=== PATIENT | female | born 1965 | race Caucasian/White ===

== ENCOUNTER 2018-12-14 00:10 | Emergency (ER) | payer OTHER ==
[2018-12-14 00:11] VITALS: BMI 23.6
[2018-12-14 00:49] VITALS: PULSE 58
[2018-12-14] MEDS ORDERED: Sodium Chloride 0.9% 1,000 ML IV STA (01:23)
--- NOTE | 2018-12-14 01:40 | ED PDOC ---
Arrival/HPI - General Historian: Patient, Personal Care Assistant - History of Present Illness Narrative History of Present Illness (Text): 12/14/18 01:28 53 y/o female with no significant PMH presents to the ED with colicky right flank pain for the past 24 hours. Patient states that her pain woke her up from sleep, intermittent, worsens with inspiration but no alleviating factors. Patient denied fever, chills, N/V/D, dysurea, urinary urgency/frequency/malodor. Pain is not related to meals, denies h/o kidney stones, gall bladder stones, or similar symptoms in the past. Patient denied CP, SOB, palpitation, headache , dizziness, muscle weakness, foacl neurological symptoms. Time/Duration: 24 hours Symptom Onset: Gradual Symptom Course: Intermittent, [place] Quality: Aching Severity Level: 7 Activities at Onset: Rest Context: Home <Saran Bustillo - Last Filed: 12/14/18 05:20> <Geovany Quesada - Last Filed: 12/14/18 19:55> - General Chief Complaint: Back Pain Time Seen by Provider: 12/14/18 00:22 Past Medical History - Provider Review Nursing Documentation Reviewed: Yes - Infectious Disease Hx of Infectious Diseases: None - Tetanus Immunization Tetanus Immunization: Unknown - Cardiac Hx Cardiac Disorders: No - Pulmonary Hx Respiratory Disorders: No - Neurological Hx Neurological Disorder: No - HEENT Hx HEENT Disorder: No - Renal Other/Comment: UTI x 2. - Endocrine/Metabolic Hx Endocrine Disorders: No - Hematological/Oncological Hx Anemia: Yes (2006) - Integumentary Other/Comment: Varicose Veins - Musculoskeletal/Rheumatological Hx Musculoskeletal Disorders: No - Gastrointestinal Hx Gastrointestinal Disorders: No - Genitourinary/Gynecological Hx Genitourinary Disorders: No - Psychiatric Hx Depression: Yes Hx Substance Use: No - Surgical History Hx Hysterectomy: Yes - Anesthesia Hx Anesthesia: Yes Hx Anesthesia Reactions: No Hx Malignant Hyperthermia: No <Saran Bustillo - Last Filed: 12/14/18 05:20> Family/Social History - Physician Review Nursing Documentation Reviewed: Yes Family/Social History: Unknown Family HX Smoking Status: Never Smoked Hx Alcohol Use: No Hx Substance Use: No <Saran Bustillo - Last Filed: 12/14/18 05:20> Allergies/Home Meds <Saran Bustillo - Last Filed: 12/14/18 05:20> <DipakGeovany iniguez - Last Filed: 12/14/18 19:55> Allergies/Adverse Reactions: Allergies No Known Allergies Allergy (Verified 12/14/18 00:46) Review of Systems - Physician Review All systems were reviewed & negative as marked: Yes - Review of Systems Constitutional: absent: Fatigue, Weight Change, Fevers Eyes: absent: Vision Changes ENT: absent: Tinnitus, Sore Throat, Epistaxis Respiratory: absent: SOB, Cough, Sputum Cardiovascular: absent: Chest Pain, Palpitations, Edema Gastrointestinal: absent: Abdominal Pain, Constipation, Diarrhea, Nausea, Vomiting, Hematochezia Genitourinary Female: absent: Dysuria, Frequency, Hematuria, Vaginal Discharge Musculoskeletal: Back Pain Skin: absent: Rash Neurological: absent: Headache, Dizziness Endocrine: absent: Diaphoresis, Polyuria Hemo/Lymphatic: absent: Adenopathy <Saran Bustillo - Last Filed: 12/14/18 05:20> Physical Exam Vital Signs Reviewed: Yes Vital Signs Temp Pulse Resp BP Pulse Ox 12/14/18 00:44 98.2 F 58 L 18 115/75 96 Temperature: Afebrile Blood Pressure: Normal Pulse: Regular Respiratory Rate: Normal Appearance: Positive for: Well-Appearing, Non-Toxic, Comfortable Pain Distress: None Mental Status: Positive for: Alert and Oriented X 3 - Systems Exam Head: Present: Atraumatic, Normocephalic Pupils: Present: PERRL Extroacular Muscles: Present: EOMI Conjunctiva: Present: Normal Mouth: Present: Moist Mucous Membranes Pharnyx: No: ERYTHEMA, EXUDATE Neck: Present: Normal Range of Motion Respiratory/Chest: Present: Clear to Auscultation, Good Air Exchange. No: Respiratory Distress, Accessory Muscle Use Abdomen: Present: Normal Bowel Sounds. No: Tenderness, Distention Back: Present: CVA Tenderness (right side). No: Midline Tenderness, Pain with Leg Raise Upper Extremity: Present: Normal Inspection. No: Cyanosis, Edema Lower Extremity: Present: Normal Inspection. No: Edema Neurological: Present: GCS=15, CN II-XII Intact Skin: Present: Warm, Dry, Normal Color. No: Rashes Psychiatric: Present: Alert, Oriented x 3, Normal Insight <Saran Bustillo - Last Filed: 12/14/18 05:20> Vital Signs Temp Pulse Resp BP Pulse Ox 12/14/18 00:44 98.2 F 58 L 18 115/75 96 <Geovany Quesada - Last Filed: 12/14/18 19:55> Medical Decision Making - Lab Interpretations Interpretation: All labs normal - RAD Interpretation Radiology Orders: 12/14/18 01:26 ABDOMEN & PELVIS [ABD & PELVIS W/O PO OR IV CONT] [CT] Stat - EKG Interpretation Interpreted by ED Physician: Yes (Sinus bradycardia @[address]-T wave abnormalities) Type: 12 lead EKG - Medication Orders Current Medication Orders: Sodium Chloride (Sodium Chloride 0.9%) 1,000 mls @ 999 mls/hr IV .Q1H1M STA Stop: 12/14/18 02:23 Ketorolac Tromethamine (Toradol) 30 mg IVP STAT STA Stop: 12/14/18 01:24 <Saran Bustillo - Last Filed: 12/14/18 05:20> ED Course and Treatment: Impression: Pt seen and evaluated with vice president medical affairs. Aware and agree with HPI, clinical findings, plan, and management. Pt presented for right flank pain. Plan: -- CT Abdomen and Pelvis -- Labs -- Urinalysis, urine cultures -- IV fluids -- Toradol -- Reassess and disposition - Lab Interpretations Lab Results: Total Bilirubin 1.2 mg/dL (0.2-1.3) 12/14/18 01:34 AST 26 U/L (14-36) 12/14/18 01:34 ALT 12 U/L (7-56) 12/14/18 01:34 Alkaline Phosphatase 55 U/L (38-126) 12/14/18 01:34 Total Protein 8.0 g/dL (5.8-8.3) 12/14/18 01:34 Albumin 4.4 g/dL (3.0-4.8) 12/14/18 01:34 Globulin 3.5 gm/dL 12/14/18 01:34 Albumin/Globulin Ratio 1.2 (1.1-1.8) 12/14/18 01:34 Urine Color Yellow (YELLOW) 12/14/18 01:36 Urine Appearance Clear (CLEAR) 12/14/18 01:36 Urine pH 6.5 (4.7-8.0) 12/14/18 01:36 Ur Specific [place] <= 1.005 (1.005-1.035) 12/14/18 01:36 Urine Protein Negative mg/dL (<30 mg/dL) 12/14/18 01:36 Urine Glucose (UA) Negative mg/dL (NEGATIVE) 12/14/18 01:36 Urine Ketones Negative mg/dL (NEGATIVE) 12/14/18 01:36 Urine Blood Negative (NEGATIVE) 12/14/18 01:36 Urine Nitrate Negative (NEGATIVE) 12/14/18 01:36 Urine Bilirubin Negative (NEGATIVE) 12/14/18 01:36 Urine Urobilinogen 0.2 E.U./dL (<1 E.U./dL) 12/14/18 01:36 Ur Leukocyte Esterase Trace [place]/uL (NEGATIVE) H 12/14/18 01:36 Urine RBC 0 - 2 /hpf (0-2) 12/14/18 01:36 Urine WBC 1 - 3 /hpf (0-6) 12/14/18 01:36 Ur Epithelial Cells 0 - 2 /hpf (0-5) 12/14/18 01:36 Urine Bacteria Rare /hpf (NONE) 12/14/18 01:36 - RAD Interpretation Radiology Orders: 12/14/18 01:26 ABDOMEN & PELVIS [ABD & PELVIS W/O PO OR IV CONT] [CT] Stat - Medication Orders Current Medication Orders: Discontinued Medications Sodium Chloride (Sodium Chloride 0.9%) 1,000 mls @ 999 mls/hr IV .Q1H1M STA Stop: 12/14/18 02:23 Last Admin: 12/14/18 01:37 Dose: 999 mls/hr eMAR Start Stop Document 12/14/18 01:37 GMD (Rec: 12/14/18 01:37 GMD [id number]) Intravenous Solution Start Date 12/14/18 Start Time 01:37 End Date 12/14/18 End time 02:37 Total Infusion Time 60 Ketorolac Tromethamine (Toradol) 30 mg IVP STAT STA Stop: 12/14/18 01:24 Last Admin: 12/14/18 01:37 Dose: 30 mg MAR Pain Assessment Document 12/14/18 01:37 GMD (Rec: 12/14/18 01:37 GMD [id number]) Pain Reassessment Is this a pain reassessment? No IVP Administration Document 12/14/18 01:37 GMD (Rec: 12/14/18 01:37 D [id number]) Charges for Administration # of IVP Administrations 1 <Geovany Quesada - Last Filed: 12/14/18 19:55> - PA / TESTING DIRECTOR / Resident Statement ENRIQUE has reviewed & agrees with the documentation as recorded. / has examined the patient and agrees with the treatment plan. <Geovany Quesada - Last Filed: 12/14/18 19:55> Disposition/Present on Arrival - Present on Arrival Any Indicators Present on Arrival: No History of DVT/PE: No History of Uncontrolled Diabetes: No Urinary Catheter: No History of Decub. Ulcer: No History Surgical Site Infection Following: None - Disposition Have Diagnosis and Disposition been Completed?: Yes Patient Plan: Discharge <Saran Bustillo - Last Filed: 12/14/18 05:20> - Present on Arrival Any Indicators Present on Arrival: No - Disposition Have Diagnosis and Disposition been Completed?: Yes Disposition Time: 05:20 Patient Plan: Discharge <Geovany Quesada - Last Filed: 12/14/18 19:55> - Disposition Diagnosis: Pneumonia of lower lobe of lung Disposition: HOME/ ROUTINE Condition: STABLE Discharge Instructions (ExitCare): Pneumonia, Adult (DC) Additional Instructions: follow up with your PMD in 2 days Prescriptions: Amoxicillin/Clavulanate [Augmentin 875 MG-125 MG] 1 tab PO BID 7 Days #14 tab Azithromycin [Zithromax] 250 mg PO DAILY 7 Days #7 tab Referrals: Nasrin Cannon DO [Primary Care Provider] - Follow up with primary Forms: [facility] (Danish), WORK NOTE
[2018-12-14 01:56] LABS: BASO # 0.01 K/mm3 (0.0-2.0); BASO % 0.1 % (0.0-3.0); EOS # 0.1 (0.0-0.7); HEMOGLOBIN 12.7 g/dL (12.0-16.0); LYMPH # 2.3 (1.2-3.4); LYMPH % 29.5 % (22.0-35.0); MEAN CELL VOLUME 90.5 fl (80.0-105.0); MEAN CORPUSCULAR HEMOGLOBIN 30.3 pg (25.0-35.0); MEAN CORPUSCULAR HGB CONC 33.5 g/dl (31.0-37.0); MEAN PLATELET VOLUME 8.9 fl (7.0-11.0); MONO # 0.6 (0.1-0.6); MONO % 7.6 % (1.0-6.0); RBC 4.19 10^6/uL (3.5-6.1); RED CELL DISTRIBUTION WIDTH 12.7 % (11.5-14.5); WHITE BLOOD COUNT 7.8 10^3/uL (4.5-11.0)
[2018-12-14 01:57] LABS: PH,URINE 6.5 (4.7-8.0); URINE BILIRUBIN NEGATIVE (NEGATIVE); URINE BLOOD NEGATIVE (NEGATIVE); URINE GLUCOSE (UA) NEGATIVE (NEGATIVE); URINE LEUKOCYTE ESTERASE TRACE Leu/uL (NEGATIVE); URINE PROTEIN NEGATIVE mg/dL (<30 mg/dL); URINE UROBILINOGEN 0.2 E.U./dL (<1 E.U./dL)
[2018-12-14 02:03] LABS: URINE APPEARANCE CLEAR (CLEAR); URINE COLOR YELLOW (YELLOW)
[2018-12-14 02:06] LABS: ALB/GLOB RATIO 1.2 (1.1-1.8); ALBUMIN 4.4 g/dL (3.0-4.8); ALT/SGPT 12 U/L (7-56); AST/SGOT 26 U/L (14-36); BLOOD UREA NITROGEN 10 mg/dL (7-21); CALCIUM 9.6 mg/dL (8.4-10.5); GFR NON-AFRICAN AMERICAN > 60
[2018-12-14 02:12] LABS: URINE BACTERIA RARE /hpf; URINE EPITHELIAL CELLS 0 - 2 /hpf (0-5); URINE RBC 0 - 2 /hpf (0-2)
--- NOTE | 2018-12-14 08:47 | CT ---
Date of service: 12/14/2018 PROCEDURE: CT Abdomen and Pelvis without intravenous contrast HISTORY: flank pain COMPARISON: None. TECHNIQUE: Without contrast.. Contrast dose: Radiation dose: Total exam DLP = 375.07 mGy-cm. This CT exam was performed using one or more of the following dose reduction techniques: Automated exposure control, adjustment of the mA and/or kV according to patient size, and/or use of iterative reconstruction technique. FINDINGS: LOWER THORAX: Unremarkable. LIVER: Unremarkable. No gross lesion or ductal dilatation. GALLBLADDER AND BILE DUCTS: Unremarkable. PANCREAS: Unremarkable. No gross lesion or ductal dilatation. SPLEEN: Unremarkable. ADRENALS: Unremarkable. No mass. KIDNEYS AND URETERS: Unremarkable. No hydronephrosis. No solid mass. VASCULATURE: Unremarkable. No aortic aneurysm. No aortic atherosclerotic calcification or mural plaque present. BOWEL: Unremarkable. No obstruction. No gross mural thickening. Moderate constipation APPENDIX: Unremarkable. Normal appendix. PERITONEUM: Unremarkable. No free fluid. No free air. LYMPH NODES: Unremarkable. No enlarged lymph nodes. BLADDER: Unremarkable. REPRODUCTIVE: Unremarkable. BONES: No acute fracture. OTHER FINDINGS: The report concurs with the preliminary [facility] report IMPRESSION: No acute intra-abdominal findings
[2018-12-14 10:16] VITALS: BP 122/68; RESP 17; TEMP 98.1; O2SAT 97
--- NOTE | 2018-12-14 13:59 | CARD ---
APPROVED REPORT Date of service: 12/14/2018 EKG Measurement Heart [id number] QT0T0 QTc0 <Conclusion> No QRS complexes found, no ECG analysis possible
--- NOTE | 2018-12-14 13:59 | CARD ---
APPROVED REPORT Date of service: 12/14/2018 EKG Measurement Heart [id number] <Conclusion> Sinus bradycardia with sinus arrhythmia Otherwise normal ECG
== END 2018-12-14 05:33 | disposition home or self-care (01) ==
LOC: ED 00:10
DX: J18.9 Pneumonia, unspecified organism (principal)
CPT/HCPCS: 74176; 80053; 81001; 83735; 84100; 85025; 87086; 93005; 96361; 96374; 99283; J1885; J7030

== ENCOUNTER 2018-12-15 00:56 | Observation (INO) | payer OTHER | END 2018-12-16 16:02 | disposition home or self-care (01) | LOC: ED 00:56 → ERH 04:01 → 3RSO 07:38 ==

== ENCOUNTER 2019-02-11 00:09 | Emergency (ER) | payer OTHER ==
[2019-02-11 00:18] VITALS: BMI 22.2
[2019-02-11 00:19] VITALS: RESP 16; TEMP 97.7; O2SAT 99
[2019-02-11] MEDS ORDERED: Naproxen 550 mg Tab PO STA (00:32)
--- NOTE | 2019-02-11 00:37 | ED PDOC ---
Arrival/HPI - General Chief Complaint: Upper Extremity Problem/Injury Time Seen by Provider: 02/11/19 00:28 Historian: Patient - History of Present Illness Narrative History of Present Illness (Text): 02/11/19 00:35 53 yo F c/o L shoulder pain radiating to the L arm, which started tonight. 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 Reports no numbness, weakness, CP, SOB, back pain, neck pain, trauma, injury or fall. PMD [place] Past Medical History - Provider Review Primary Care Provider: Nasrin Cannon V - Infectious Disease Hx of Infectious Diseases: None - Tetanus Immunization Tetanus Immunization: Unknown - Cardiac Hx Cardiac Disorders: No - Pulmonary Hx Pneumonia: Yes - Neurological Hx Neurological Disorder: No - HEENT Hx HEENT Disorder: No - Renal Other/Comment: UTI x 2. - Endocrine/Metabolic Hx Endocrine Disorders: No - Hematological/Oncological Hx Anemia: Yes (2006) - Integumentary Other/Comment: Varicose Veins - Musculoskeletal/Rheumatological Hx Musculoskeletal Disorders: No - Gastrointestinal Hx Gastrointestinal Disorders: No - Genitourinary/Gynecological Hx Genitourinary Disorders: No - Psychiatric Hx Depression: Yes Hx Substance Use: No - Surgical History Hx Hysterectomy: Yes - Anesthesia Hx Anesthesia: Yes Hx Anesthesia Reactions: No Hx Malignant Hyperthermia: No Family/Social History Family/Social History: No Known Family HX Smoking Status: Never Smoked Hx Alcohol Use: No (denies) Hx Substance Use: No Allergies/Home Meds Allergies/Adverse Reactions: Allergies No Known Allergies Allergy (Verified 12/14/18 00:46) Review of Systems - Review of Systems Constitutional: absent: Fatigue, Fevers Respiratory: absent: SOB, Cough Cardiovascular: absent: Chest Pain, Palpitations Musculoskeletal: Arthralgias. absent: Back Pain, Neck Pain Skin: absent: Rash, Skin Lesions Neurological: absent: Headache, Dizziness Physical Exam Vital Signs Temp Pulse Resp BP Pulse Ox 02/11/19 00:18 97.7 F 60 16 138/71 99 Temperature: Afebrile Blood Pressure: Normal Pulse: Regular Respiratory Rate: Normal Appearance: Positive for: Well-Appearing, Non-Toxic, Comfortable Pain Distress: Mild Mental Status: Positive for: Alert and Oriented X 3 - Systems Exam Head: Present: Atraumatic, Normocephalic Neck: Present: Normal Range of Motion. No: MIDLINE TENDERNESS Respiratory/Chest: Present: Clear to Auscultation, Good Air Exchange. No: Respiratory Distress, Accessory Muscle Use Cardiovascular: Present: Regular Rate and Rhythm, Normal S1, S2. No: Murmurs Back: Present: Normal Inspection. No: Midline Tenderness Upper Extremity: Present: Normal Inspection, Normal ROM, NORMAL PULSES, Tenderness (+tenderness to the medial L arm proximal to the L shoulder, patient able to abduct the L shoulder), Neurovascularly Intact, Norm 2-Pt Discrimination. No: Cyanosis, Edema, Swelling, Erythema, Temperature Abnormalties, Capillary Refill < 2s, Deformity Lower Extremity: Present: Normal Inspection. No: Edema Neurological: Present: GCS=15, CN II-XII Intact, Speech Normal, Normal Sensory Function Skin: Present: Warm, Dry, Normal Color. No: Rashes Psychiatric: Present: Alert, Oriented x 3, Normal Insight, Normal Concentration Medical Decision Making ED Course and Treatment: 02/11/19 00:33 Plan : - XR L shoulder - EKG - Naprosyn PO EKG : SB at 59 bpm, no acute ST changes. XR L shoulder : no fracture, no dislocation. XR results d/w the patient. Sling applied. Advised to rest, ice shoulder. Diagnosis of bursitis vs tendonitis d/w the patient. Advised to follow up with referral physician in 1-2 days without fail. Advised to take medication as prescribed. Return to the emergency room at any time for any new or worsening symptoms. Patient states she fully agrees with and understands discharge instructions. States that she agrees with the plan and disposition. Verbalized and repeated discharge instructions and plan. I have given the patient opportunity to ask any additional questions. - RAD Interpretation Radiology Orders: 02/11/19 00:32 SHOULDER LEFT [RAD] Stat - PA / SCALE TANK OPERATOR / Resident Statement MD/DO has reviewed & agrees with the documentation as recorded. Disposition/Present on Arrival - Present on Arrival Any Indicators Present on Arrival: No History of DVT/PE: No History of Uncontrolled Diabetes: No Urinary Catheter: No History of Decub. Ulcer: No History Surgical Site Infection Following: None - Disposition Have Diagnosis and Disposition been Completed?: Yes Diagnosis: Left shoulder pain Disposition: HOME/ ROUTINE Disposition Time: 01:15 Patient Plan: Discharge Condition: STABLE Discharge Instructions (ExitCare): Shoulder Pain (DC), Bursitis, Tendonitis Print Language: BELARUSIAN Additional Instructions: Thank you for letting us take care of you today. You were treated for L shoulder pain. The emergency medical care you received today was directed at your acute symptoms. Take medications as prescribed. Return to the Emergency Department if your symptoms worsen, do not improve, or if you have any other problems. Please contact your doctor or referral provided in 2 days for re-evaluation and follow up. Bring any paperwork you were given at discharge with you along with any medications you are taking to your follow up visit. Our treatment cannot re place ongoing medical care by a primary care provider (PCP) outside of the emergency department. Prescriptions: Meloxicam [Mobic] 15 mg PO DAILY PRN #20 tab PRN Reason: Pain, Moderate (4-7) Referrals: Nasrin Cannon DO [Primary Care Provider] - Follow up with primary Maggie Natarajan MD [Staff Provider] - Follow up with primary Forms: [facility] (Czech), WORK NOTE
[2019-02-11 01:33] VITALS: BP 132/69; PULSE 65
--- NOTE | 2019-02-11 11:55 | CARD ---
APPROVED REPORT Date of service: 02/11/2019 EKG Measurement Heart [id number] [id number] <Conclusion> Sinus bradycardia Otherwise normal ECG
--- NOTE | 2019-02-11 18:03 | RAD ---
Date of service: 02/11/2019 PROCEDURE: Radiographs of the Left Shoulder HISTORY: pain COMPARISON: No prior. TECHNIQUE: 3 views obtained. FINDINGS: BONES: No acute fracture. Possible old healed clavicular fracture. JOINTS: Normal. Glenohumeral and acromioclavicular joints preserved. No osteoarthritis. SOFT TISSUES: Normal. OTHER FINDINGS: None. IMPRESSION: No acute fracture.
== END 2019-02-11 01:33 | disposition home or self-care (01) ==
LOC: ED 00:09
DX: M25.512 Pain in left shoulder (principal)